=== PATIENT | male | born 1965 | race Caucasian/White ===

== ENCOUNTER 2017-08-12 18:18 | Inpatient (IN) | payer OTHER ==
[2017-08-12 19:05] LABS: #Eosinphils 0.2 thou/uL (0.0-0.7); #Lymphocytes 1.9 thou/uL (1.20-3.40); #Monocytes 0.8 thou/uL (0.11-0.59); %Basophils 0.3 % (0.0-1.0); %Eosinophils 1.5 % (0.0-10.0); %Lymphocytes 17.2 % (21.0-51.0); %Monocytes 7.6 % (0.0-10.0); Hematocrit 41.4 % (42.0-52.0); Mean Platelet Volume 7.3 fL (7.4-10.4); Red Blood Cell (RBC) Count 4.35 mill/uL (4.70-6.10); White Blood Cell (WBC) Count 10.9 thou/uL (4.8-10.8)
[2017-08-12 19:28] LABS: Lactic Acid - Sepsis 2.1 mmol/L (0.5-2.2)
[2017-08-12 19:35] LABS: ALT (SGPT) 23 U/L (8-55); AST (SGOT) 15 U/L (5-34); Alkaline Phosphatase 96 U/L (40-150); Anion Gap 13 mmol/L (10-20); BUN (Urea Nitrogen) 24 mg/dL (8.4-25.7); Bilirubin, Total 0.5 mg/dL (0.2-1.2); CK (CPK) 61 U/L (30-200); Calc. Creatinine Clearance 0 mL/min (70-130); Calcium 9.1 mg/dL (7.8-10.44); Carbon Dioxide 27 mmol/L (22-29); Chloride 105 mmol/L (98-107); Estimated GFR-MDRD 87; Globulin 3.4 g/dL (2.4-3.5); Lipase 40 U/L (8-78)
[2017-08-12 19:37] LABS: Troponin I Less than 0.010 ng/mL (< 0.028)
--- NOTE | 2017-08-12 19:43 | RAD ---
PORTABLE AP CHEST X-RAY 08/12/17 HISTORY: Fever. FINDINGS: The cardiac silhouette and pulmonary vasculature are within normal limits. The lungs are clear. Osse ous structures are intact. Vascular calcifications seen in the thoracic aorta. Mild degenerative briana nges are noted in the spine. IMPRESSION: No acute cardiopulmonary process. POS: H
[2017-08-12] MEDS ORDERED: Piperacillin/Tazobactam 3.375 GM VIAL ONE (21:00)
[2017-08-12] MEDS ORDERED: Sodium Chloride 0.9% 100 ML ONE (21:00)
[2017-08-12] MEDS ORDERED: Ondansetron HCl/PF 4 MG/2 ML Vial IVP PRN ×2 (22:19→23:47)
[2017-08-12] MEDS ORDERED: Ondansetron ODT 4 MG TAB SL PRN (22:19)
[2017-08-12] MEDS ORDERED: Sodium Chloride 0.9% 1,000 ML IV SCH (22:19)
[2017-08-12] MEDS ORDERED: Vancomycin HCl 1 GM in Premix Bag 1 BAG IVPB SCH (23:00)
[2017-08-12] MEDS ORDERED: cloNIDine HCl 0.1 MG TAB PO PRN (23:47)
[2017-08-12] MEDS ORDERED: Ondansetron ODT 4 MG TAB PO PRN (23:47)
[2017-08-12] MEDS ORDERED: Acetaminophen 500 MG TAB PO PRN (23:47)
[2017-08-12 23:52] VITALS: BMI 24.9
[2017-08-13] MEDS: Sodium Chloride 0.9% 1,000 ML IV SCH ×2 (00:20→05:17)
--- NOTE | 2017-08-13 00:51 | HP ---
DATE OF ADMISSION: 08/12/2017 PRIMARY CARE PROVIDER: Stefania Argueta MD CHIEF COMPLAINT: Fever. HISTORY OF PRESENT ILLNESS: This is a 52-year-old male who is a current resident at a [facility] in [place], [place] with a significant history of hydrocephalus with a ssociated dementia and behavioral disturbance, who the halfway personnel noted a fever up to 10 0.2 degrees Fahrenheit. The patient also complained of left leg pain with questionable functional d ecline beyond baseline. The patient was evaluated by the nurse practitioner at [facility] and recommended for transfer to [facility]. The patient was treated with Tylenol 500 mg x1 dose with essentially normal vital signs except for the temperature o f 100.2 degrees Fahrenheit. The patient currently denies any specific symptoms such as shortness of breath, cough, chest pain, abdominal discomfort, dysuria, hematuria, hematemesis, or diarrhea. [place]an[place]ita [place] states he feels at his baseline and is not sure why he was in the hospital. The rest of the hi story is obtained after review of the electronic medical record from [facility] in addition to the emergency room records. In the emergency room, the patient underwent genera l evaluation including chest imaging showing no acute infiltrate. The patient did receive IV vancom ycin and Zosyn as well as 2 liters of normal saline. The patient was transferred to the medical michael or after concern for SIRS. PAST MEDICAL HISTORY: 1. Hydrocephalus. 2. Dementia with behavioral disturbance, likely secondary to #1. 3. Mood disorder. 4. Seborrheic dermatitis. 5. Generalized muscle weakness. 6. Ataxic gait. PAST SURGICAL HISTORY: Reviewed and negative. CURRENT MEDICATIONS: 1. Aricept 10 mg one tablet p.o. daily. 2. Zofran 4 mg p.o. every 4 to 6 hours p.r.n. 3. Tylenol No. 3 of 300 mg p.o. every 6 hours p.r.n. 4. Seroquel 50 mg p.o. daily. 5. Coreg 6.25 mg p.o. b.i.d. 6. Lisinopril 20 mg one tablet p.o. daily. 7. Folic acid 1 mg p.o. daily. ALLERGIES: No known drug allergies. FAMILY HISTORY: No inheritable diseases per patient report. SOCIAL HISTORY: Patient resides at a [facility]. No current alcohol, toba account supervisor, or illicit drug use. Requires assistance with all activities of daily living. Mobilizes with a wheelchair. REVIEW OF SYSTEMS: The following complete review of systems was negative, unless otherwise mentione d in the HPI or below: Constitutional: Weight loss or gain, ability to conduct usual activities. Skin: Rash, itching. Eyes: Double vision, pain. ENT/Mouth: Nose bleeding, neck stiffness, pain, tenderness. Cardiovascular: Palpitations, dyspnea on exertion, orthopnea. Respiratory: Shortness of breath, wheezing, cough, hemoptysis, fever or night sweats. Gastrointestinal: Poor appetite, abdominal pain, heartburn, nausea, vomiting, constipation, or diar crispin. Genitourinary: Urgency, frequency, dysuria, nocturia. Musculoskeletal: Pain, swelling. Neurologic/Psychiatric: Anxiety, depression. Allergy/Immunologic: Skin rash, bleeding tendency. PHYSICAL EXAMINATION: VITAL SIGNS: On admission, blood pressure is 164/117, pulse 90, respiratory rate 18, temperature 98 .5 degrees Fahrenheit, O2 saturation 99% on room air. GENERAL APPEARANCE: This is a 52-year-old male, alert and responsive, in no acute distres s. HEENT EXAM: Pupils are equal, round, and reactive to light and accommodation. Extraocular muscles are intact. No scleral icterus, no conjunctival injection. Nares patent. OP is clear. Teeth in f air repair. NECK: Supple, no cervical adenopathy, no thyromegaly, no carotid bruits, no JVD appreciated. Cervi maverick spine with full active and passive range of motion. CHEST: Lungs are clear to auscultation bilaterally. CARDIOVASCULAR EXAM: S1 and S2, without noted murmur. ABDOMEN: Rounded, soft, nontender, and nondistended. Bowel sounds are positive in all four quadran ts. There is no hepatosplenomegaly, no abdominal bruits, no rebound or guarding appreciated. EXTREMITIES: Warm and dry with fair turgor. No clubbing, cyanosis, or asymmetric edema appreciated . Pulses are palpable distally at the dorsalis pedis, posterior tibial, and popliteal arteries bila terally. Capillary refill is less than 2 seconds. NEUROLOGIC EXAM: Cranial nerves II through XII are grossly intact. The patient not observed ambula tory during this exam. Alert and oriented x2. PERTINENT LABORATORY DATA AND X-RAY FINDINGS: Basic metabolic profile within normal limits. Lactic acid level negative x2. LFTs negative. BNP 19.4, albumin 3.6, lipase 40. CBC showed a white bloo d cell count 10.9, hemoglobin 14, hematocrit 41, MCV 95, platelet count 259 with normal differential . Portable chest x-ray dated on 08/12/2017, showed no acute cardiopulmonary process. ASSESSMENT AND PLAN: 1. Febrile episode. Etiology is unclear. We will continue to monitor clinically. Patient receive d IV vancomycin and Zosyn in the emergency room; however, no specific evidence to suggest focal infe ctious process. Check urinalysis with reflex microscopy. Hold further antibiotic therapy, pending clinical monitoring. 2. Hydrocephalus with early dementia. Continue symptomatic and supportive measures. Aricept 10 mg p.o. daily. 3. Hypertension, labile. Resume Coreg 6.25 mg p.o. b.i.d., lisinopril 20 mg p.o. daily. Continue serial blood pressure monitoring. 4. 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 We will obtain PT evaluation with general fall risk pre cautions. 5. Prophylaxis. Sequential compression devices while in bed. Pepcid 20 mg p.o. b.i.d. PT evaluat ion is pending. 6. Code status is DO NOT RESUSCITATE, confirmed with halfway records. Surrogate medical decis ion maker is Payton Carbone, patient's sister.
[2017-08-13] MEDS ORDERED: Piperacillin/Tazobactam 3.375 GM in Sodium Chloride 0.9% 100 ML IVPB SCH (03:00)
[2017-08-13 06:21] LABS: Anion Gap 9 mmol/L (10-20); BUN (Urea Nitrogen) 17 mg/dL (8.4-25.7); Calc. Creatinine Clearance 131 mL/min (70-130); Calcium 8.4 mg/dL (7.8-10.44); Carbon Dioxide 27 mmol/L (22-29); Chloride 107 mmol/L (98-107); Estimated GFR-MDRD Greater than 90
[2017-08-13 06:32] LABS: Band 2 % (5-11); Hematocrit 33.8 % (42.0-52.0); Mean Platelet Volume 7.4 fL (7.4-10.4); Neutrophil 60 % (42-75); Red Blood Cell (RBC) Count 3.57 mill/uL (4.70-6.10); White Blood Cell (WBC) Count 7.9 thou/uL (4.8-10.8)
[2017-08-13] MEDS: Famotidine 20 MG TAB PO SCH ×2 (08:35→20:04)
[2017-08-13] MEDS ORDERED: FLU VACC QS2017-18 36 mo. & older 0.5 ML SYRINGE IM ONE (09:00)
[2017-08-13] MEDS ORDERED: Acetaminophen 325 MG TAB PO PRN (12:27)
[2017-08-13] MEDS ORDERED: Mag-Al 1200 mg/1200 mg/30 ML UDCUP PO PRN (12:27)
[2017-08-13] MEDS ORDERED: Non-Formulary Item 1 EACH (Ondansetron Hcl [Zofran] 4 MG) PO PRN (12:27)
[2017-08-13 12:32] LABS: Bilirubin Negative (Negative); Blood, Urine Negative (Negative); Glucose, Urine (Dipstick) Negative (Negative); Ketone, Urine Negative (Negative); Nitrite Negative (Negative); Protein, Urine (Dipstick) Negative (Neg-Trace)
[2017-08-13] MEDS ORDERED: Loperamide HCl 2 MG CAP PO PRN (13:25)
--- NOTE | 2017-08-13 14:15 | PDOC.PN ---
- Subjective Encounter Start Date: 08/13/17 Encounter Start Time: 08:40 Pt seen for followup re: hypertension. Denies chest pain, shortness of breath, fevers or chills. - Objective Resuscitation Status: Resuscitation Status DNR:Do Not Resuscitate MAR Reviewed: Yes Vital Signs & Weight: Vital Signs (12 hours) Temp Pulse Resp BP Pulse Ox 08/13/17 11:35 98.2 F 80 16 165/119 H 92 L 08/13/17 08:00 97.7 F 75 16 97 08/13/17 07:47 97.7 F 75 16 159/107 H 97 08/13/17 04:00 98.1 F 91 16 160/98 H 93 L Weight Weight 184 lb I&O: 08/12/17 08/13/17 08/14/17 06:59 06:59 06:59 Intake Total 450 480 Balance 450 480 Result Diagrams: 08/13/17 05:41 08/13/17 05:41 Phys Exam - Physical Examination Constitutional: NAD HEENT: moist MMs, oral pharynx no lesions Neck: no JVD, supple, full ROM Respiratory: no wheezing, no rales, no rhonchi, clear to auscultation bilateral Cardiovascular: RRR, no rub Gastrointestinal: soft, non-tender, positive bowel sounds Musculoskeletal: pulses present Neurological: moves all 4 limbs Lymphatic: no nodes Psychiatric: normal affect Deviation from normal: Oriented to person and place, not to time Dx/Plan (1) Hypertension Code(s): I10 - ESSENTIAL (PRIMARY) HYPERTENSION Status: Acute (2) 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 Monitor vital signs and titrate antihypertensives as needed. Pt eval re: ataxic gait secondary to hydrocephalus. Pt has been afebrile, off of antibiotics. Await cultures. No evidence of UTI. Review of Systems - Review of Systems Constitutional: negative: Fever, Chills, Sweats, Weakness, Malaise Respiratory: negative: Cough, Dry, Shortness of Breath, Hemoptysis, SOB with Excertion, Pleuritic Pain, Sputum, Wheezing Cardiovascular: negative: Chest Pain, Palpitations, Orthopnea, Paroxysmal Noc. Dyspnea, Edema, Light Headedness Gastrointestinal: negative: Nausea, Vomiting, Abdominal Pain, Diarrhea, Constipation, Melena, Hematochezia Genitourinary: negative: Dysuria, Frequency, Incontinence, Hematuria, Retention - Medications/Allergies Allergies/Adverse Reactions: Allergies Allergy/AdvReac Type Severity Reaction Status Date / Time No Known Allergies Allergy Verified 08/13/17 01:17 Medications: Current Medications Acetaminophen (Tylenol) 1,000 mg PO Q6H PRN PRN Reason: Headache/Fever or Mild Pain Acetaminophen (Tylenol) 650 mg PO Q4H PRN PRN Reason: Mild Pain (1-3) Acetaminophen/Codeine Phosphate (Tylenol #3) 1 tab PO Q6H PRN PRN Reason: Moderate Pain (4-6) Al Hydroxide/Mg Hydroxide (Maalox) 30 ml PO Q4H PRN PRN Reason: Heartburn or Indigestion Carvedilol (Coreg) 6.25 mg PO BID [facility] Clonidine HCl (Catapres) 0.1 mg PO Q4H PRN PRN Reason: Systolic BP > 180 Donepezil HCl (Aricept) 10 mg PO HS [facility] Famotidine (Pepcid) 20 mg PO BID [facility] Last Admin: 08/13/17 08:35 Dose: 20 mg Hydralazine HCl (Apresoline) 10 mg SLOW IVP Q4H PRN PRN Reason: Systolic BP > 180 Sodium Chloride (Normal Saline 0.9%) 1,000 mls @ 75 mls/hr IV .[id number] [facility] Last Admin: 08/13/17 05:17 Dose: 1,000 mls Lisinopril (Zestril) 20 mg PO DAILY [facility] Loperamide HCl (Imodium) 2 mg PO PRN PRN PRN Reason: Diarrhea/Loose Stools Multivitamins/Zinc (Stress 600 With Zinc) 1 tab PO DAILY [facility] Ondansetron HCl (Zofran Odt) 4 mg PO Q6H PRN PRN Reason: Nausea/Vomiting Ondansetron HCl (Zofran) 4 mg IVP Q6H PRN PRN Reason: Nausea/Vomiting Quetiapine Fumarate (Seroquel) 50 mg PO DAILY [facility]
--- NOTE | 2017-08-13 16:50 | CON ---
DATE OF CONSULTATION: 08/13/2017 LOCATION: [place] [id number] CONSULTING PHYSICIAN: Dr. Guerra REASON FOR CONSULTATION: Hydrocephalus. HISTORY OF PRESENT ILLNESS: The history is obtained from the chart review and from the patient's wi fe and his daughter. The patient's was present at bedside and the patient's daughter was able to give some information on the phone. The patient is a 52-year-old male who is a current resident at [facility] who has a past medical history of hydrocephalus, and dementia with behavioral disturbance due to hydrocephalus, mood disorder, dermatitis, ataxic gait who presented to the hospital with fever. According to the documentation and the daughter the patient was at the prison yesterday and wh en the prison personnel went to check on him, they transferred him from his bed to the chair t o take him to the dining area to assist him in feeding. They noticed that he was crouched over and slumped over and unable to hold his torso up. When they brought him back they noticed that he had s ome shaking and tremors of his legs. When they took the temperature it was 100.2. The patient was subsequently transferred over here for further evaluation. Per documentation the patient denied shortness of breath, cough, chest pain, abdominal discomfort, d ysuria, hematuria, hematemesis or diarrhea. The patient received IV vancomycin and Zosyn as well as normal saline and then was subsequently transferred to the medical floor for concern for systemic i nflammatory response syndrome. The patient's hydrocephalus has been chronic in nature. He has longstanding history of hydrocephalu s and dementia and confusion. He has been evaluated by Neurosurgery in the past. He has had lumbar puncture done twice with no improvement in his symptoms, so no shunt was recommended by Neurosurger y in the past. He has had extensive workup in regards to his hydrocephalus. According to the ER documentation his temperature was 98.3-98.5. His temperature has been normal si nce admission. The patient does not provide much history, but he denies any symptoms currently. PAST MEDICAL HISTORY: As mentioned in the HPI. PAST SURGICAL HISTORY: Negative. HOME MEDICATIONS: Please review the chart. He is on Aricept, Seroquel, along with the blood pressu re medications. ALLERGIES: No known drug allergies. FAMILY HISTORY: No inheritable disease. SOCIAL HISTORY: He lives at the prison facility. No alcohol, tobacco or illicit drug use. REVIEW OF SYSTEMS: As mentioned in the HPI, otherwise negative. PHYSICAL EXAMINATION: VITAL SIGNS: Temperature 98.2, pulse rate 80, respiratory rate 16, O2 sats 92-97% on room air, bloo d pressure 165/119. GENERAL: Well-developed, well-nourished male in no apparent distress. HEENT: Normocephalic, atraumatic. Normal sclerae. NECK: Supple. RESPIRATORY: Clear to auscultation bilaterally. CARDIOVASCULAR: Regular rate and rhythm. NEUROLOGIC: The patient's neurological exam is limited due to his inability to follow commands at t imes. He is awake. He is alert. He is not drowsy, does not appear to be lethargic or obtunded. Braulio nowak is able to tell me his name, his date of . He is able to state that he is in [place], [place]. Speech and language intact. He was able to name object and was able to follow commands appropriatel y. Cranial nerves: Pupils were reactive to light bilaterally. Extraocular movements intact. Visu al foster were difficult to assess. No facial droop noted. Motor; normal tone and bulk. The patie nt was able to raise his upper extremities against gravity without any focal weakness. Lower extrem ities; he was barely able to lift them up, unsure what his baseline is. Sensation intact to fine to uch throughout. Coordination is intact to [id number] testing in upper extremities. Gait an d Romberg not tested. LABORATORY DATA: The patient had elevated white cell count 10.9 on admission, normal today. Chemis try; normal electrolytes, potassium 3.3. LFTs normal. Kidney function normal. Urinalysis negative . IMAGING: No imaging from neurological standpoint. IMPRESSION: 1. Hydrocephalus. In regards to hydrocephalus, the patient has had extensive workup done in the [facility] including lumbar puncture twice. There was no improvement in his symptoms. The patient was eval uated by Neurosurgery and they did not recommend any shunt placement. His hydrocephalus, dementia a nd confusion are longstanding. He has a longstanding history of dementia, confusion and hydrocephal us and as mentioned before, he has had extensive workup done for that. No other workup needed at is time. 2. Fever. Continue medical management per primary team. Right now on exam the patient is awake, a lert and oriented and following commands. He does not appear to be confused. He does not appear to be lethargic or obtunded. If patient continues to run fever and his altered mental status and ther e is no other source of infection then patient may benefit with lumbar puncture to rule out meningit is. Continue antibiotics and medical management per primary team. No other recommendations from a neurological standpoint. We will sign off. Please call us with que stions.
[2017-08-13] MEDS: Vancomycin HCl 1.25 GM in Sodium Chloride 0.9% 250 ML 250 ML IVPB SCH (17:07)
[2017-08-13] MEDS: Acetaminophen/Codeine 30-300mg Tablet PO PRN (19:14)
[2017-08-13] MEDS: Carvedilol 6.25 MG TAB PO SCH (20:03)
[2017-08-13] MEDS: Donepezil HCl 10 MG TAB PO SCH (20:03)
[2017-08-14] MEDS: Sodium Chloride 0.9% 1,000 ML IV SCH ×2 (00:20→16:34)
[2017-08-14] MEDS: Vancomycin HCl 1.25 GM in Sodium Chloride 0.9% 250 ML 250 ML IVPB SCH ×2 (02:15→10:57)
[2017-08-14] MEDS: Lisinopril 20 MG TAB PO SCH (08:52)
[2017-08-14] MEDS: Carvedilol 6.25 MG TAB PO SCH ×2 (08:53→21:18)
[2017-08-14] MEDS: Famotidine 20 MG TAB PO SCH ×2 (08:53→21:17)
[2017-08-14] MEDS: Stress 600 With Zinc 1 TAB PO SCH (08:54)
--- NOTE | 2017-08-14 14:35 | PDOC.PN ---
- Subjective Encounter Start Date: 08/14/17 Encounter Start Time: 13:00 Subjective: no sob, is awake and oriented well -: eating well - Objective Resuscitation Status: Resuscitation Status DNR:Do Not Resuscitate MAR Reviewed: Yes Vital Signs & Weight: Vital Signs (12 hours) Temp Pulse Resp BP BP Pulse Ox 08/14/17 08:53 134/88 08/14/17 08:52 134/88 08/14/17 08:00 98.1 F 83 18 97 08/14/17 07:39 98.1 F 83 18 148/94 H 97 Weight Admit Weight 184 lb Weight 184 lb I&O: 08/13/17 08/14/17 08/15/17 06:59 06:59 06:59 Intake Total 450 3726 240 Balance 450 3726 240 Result Diagrams: 08/13/17 05:41 08/13/17 05:41 Phys Exam - Physical Examination HEENT: PERRLA, moist MMs Neck: no JVD, supple Respiratory: no wheezing, no rales Cardiovascular: RRR, no significant murmur Gastrointestinal: soft, non-tender, positive bowel sounds Musculoskeletal: no edema, pulses present Neurological: non-focal, moves all 4 limbs Dx/Plan (1) Fever Code(s): R50.9 - FEVER, UNSPECIFIED Status: Resolved (2) Dementia Code(s): F03.90 - UNSPECIFIED DEMENTIA WITHOUT BEHAVIORAL DISTURBANCE Status: Chronic Qualifiers: Dementia type: unspecified type (3) Hypertension Code(s): I10 - ESSENTIAL (PRIMARY) HYPERTENSION Status: Chronic Qualifiers: Hypertension type: essential hypertension Qualified Code(s): I10 - Essential (primary) hypertension (4) Ataxia Code(s): R27.0 - ATAXIA, UNSPECIFIED Status: Chronic (5) Hydrocephalus Code(s): G91.9 - HYDROCEPHALUS, UNSPECIFIED Status: Chronic - Plan 1/2 coag -ve staph, likely contaminant -: no further fever here -: is on vanc -: dc plan in am if stable to snf -: PT to mobilize pt as tolerated, ?ataxic gait * . Review of Systems - Medications/Allergies Allergies/Adverse Reactions: Allergies Allergy/AdvReac Type Severity Reaction Status Date / Time No Known Allergies Allergy Verified 08/13/17 01:17 Medications: Current Medications Acetaminophen (Tylenol) 1,000 mg PO Q6H PRN PRN Reason: Headache/Fever or Mild Pain Acetaminophen (Tylenol) 650 mg PO Q4H PRN PRN Reason: Mild Pain (1-3) Last Admin: 08/13/17 17:08 Dose: 650 mg Acetaminophen/Codeine Phosphate (Tylenol #3) 1 tab PO Q6H PRN PRN Reason: Moderate Pain (4-6) Last Admin: 08/13/17 19:14 Dose: 1 tab Al Hydroxide/Mg Hydroxide (Maalox) 30 ml PO Q4H PRN PRN Reason: Heartburn or Indigestion Carvedilol (Coreg) 6.25 mg PO BID [facility] Last Admin: 08/14/17 08:53 Dose: 6.25 mg Clonidine HCl (Catapres) 0.1 mg PO Q4H PRN PRN Reason: Systolic BP > 180 Donepezil HCl (Aricept) 10 mg PO HS [facility] Last Admin: 08/13/17 20:03 Dose: 10 mg Famotidine (Pepcid) 20 mg PO BID [facility] Last Admin: 08/14/17 08:53 Dose: 20 mg Hydralazine HCl (Apresoline) 10 mg SLOW IVP Q4H PRN PRN Reason: Systolic BP > 180 Sodium Chloride (Normal Saline 0.9%) 1,000 mls @ 75 mls/hr IV .[id number] [facility] Last Admin: 08/14/17 00:20 Dose: 1,000 mls Vancomycin HCl 1.25 gm/ Sodium (Chloride) 250 mls @ 166.667 mls/hr IVPB 0200, 1000,1800 [facility] Last Admin: 08/14/17 10:57 Dose: 250 mls Lisinopril (Zestril) 20 mg PO DAILY [facility] Last Admin: 08/14/17 08:52 Dose: 20 mg Loperamide HCl (Imodium) 2 mg PO PRN PRN PRN Reason: Diarrhea/Loose Stools Multivitamins/Zinc (Stress 600 With Zinc) 1 tab PO DAILY [facility] Last Admin: 08/14/17 08:54 Dose: 1 tab Ondansetron HCl (Zofran Odt) 4 mg PO Q6H PRN PRN Reason: Nausea/Vomiting Ondansetron HCl (Zofran) 4 mg IVP Q6H PRN PRN Reason: Nausea/Vomiting Quetiapine Fumarate (Seroquel) 50 mg PO DAILY [facility] Last Admin: 08/14/17 08:52 Dose: 50 mg
[2017-08-14 17:51] LABS: Vancomycin, Trough 27.9 ug/mL
[2017-08-14] MEDS: Donepezil HCl 10 MG TAB PO SCH (21:18)
[2017-08-15] MEDS: Vancomycin HCl 1.25 GM in Sodium Chloride 0.9% 250 ML 250 ML IVPB SCH ×3 (00:22→17:56)
[2017-08-15 03:57] LABS: Vancomycin, Random 15.2 ug/mL (See Comment)
[2017-08-15] MEDS: Sodium Chloride 0.9% 1,000 ML IV SCH ×2 (05:09→17:57)
[2017-08-15] MEDS: Carvedilol 6.25 MG TAB PO SCH ×2 (08:58→20:34)
[2017-08-15] MEDS: Stress 600 With Zinc 1 TAB PO SCH (08:58)
[2017-08-15] MEDS: Lisinopril 20 MG TAB PO SCH (08:58)
[2017-08-15] MEDS: Famotidine 20 MG TAB PO SCH ×2 (08:59→20:34)
--- NOTE | 2017-08-15 12:16 | PDOC.PN ---
- Subjective Encounter Start Date: 08/15/17 Encounter Start Time: 11:25 Subjective: feels better, eating well, no fever -: amb in room for short distances - Objective Resuscitation Status: Resuscitation Status DNR:Do Not Resuscitate MAR Reviewed: Yes Vital Signs & Weight: Vital Signs (12 hours) Temp Pulse Resp BP BP Pulse Ox 08/15/17 11:28 163/103 H 08/15/17 08:58 171/105 H 08/15/17 08:00 98.1 F 82 16 95 08/15/17 07:39 98.1 F 82 16 171/105 H 95 Weight Admit Weight 184 lb Weight 184 lb I&O: 08/14/17 08/15/17 08/16/17 06:59 06:59 06:59 Intake Total 3726 2854 240 Balance 3726 2856 240 Result Diagrams: 08/13/17 05:41 08/13/17 05:41 Phys Exam - Physical Examination HEENT: PERRLA, moist MMs Neck: no JVD, supple Respiratory: no wheezing, no rales Cardiovascular: RRR, no significant murmur Gastrointestinal: soft, non-tender, positive bowel sounds Musculoskeletal: no edema, pulses present Neurological: non-focal, moves all 4 limbs Psychiatric: A&O x 3 Dx/Plan (1) Fever Code(s): R50.9 - FEVER, UNSPECIFIED Status: Resolved (2) Dementia Code(s): F03.90 - UNSPECIFIED DEMENTIA WITHOUT BEHAVIORAL DISTURBANCE Status: Chronic Qualifiers: Dementia type: unspecified type (3) Hypertension Code(s): I10 - ESSENTIAL (PRIMARY) HYPERTENSION Status: Chronic Qualifiers: Hypertension type: essential hypertension Qualified Code(s): I10 - Essential (primary) hypertension (4) Ataxia Code(s): R27.0 - ATAXIA, UNSPECIFIED Status: Chronic (5) Hydrocephalus Code(s): G91.9 - HYDROCEPHALUS, UNSPECIFIED Status: Chronic - Plan 1/2 coag neg staph is likely contaminant -: dc pt to snf in am -: is on vanc for now -: hemostable -: chronic hydrocephalus, no intervention for now * . Review of Systems - Medications/Allergies Allergies/Adverse Reactions: Allergies Allergy/AdvReac Type Severity Reaction Status Date / Time No Known Allergies Allergy Verified 08/13/17 01:17 Medications: Current Medications Acetaminophen (Tylenol) 1,000 mg PO Q6H PRN PRN Reason: Headache/Fever or Mild Pain Acetaminophen (Tylenol) 650 mg PO Q4H PRN PRN Reason: Mild Pain (1-3) Last Admin: 08/13/17 17:08 Dose: 650 mg Acetaminophen/Codeine Phosphate (Tylenol #3) 1 tab PO Q6H PRN PRN Reason: Moderate Pain (4-6) Last Admin: 08/13/17 19:14 Dose: 1 tab Al Hydroxide/Mg Hydroxide (Maalox) 30 ml PO Q4H PRN PRN Reason: Heartburn or Indigestion Carvedilol (Coreg) 6.25 mg PO BID [facility] Last Admin: 08/15/17 08:58 Dose: 6.25 mg Clonidine HCl (Catapres) 0.1 mg PO Q4H PRN PRN Reason: Systolic BP > 180 Donepezil HCl (Aricept) 10 mg PO HS [facility] Last Admin: 08/14/17 21:18 Dose: 10 mg Famotidine (Pepcid) 20 mg PO BID [facility] Last Admin: 08/15/17 08:59 Dose: 20 mg Hydralazine HCl (Apresoline) 10 mg SLOW IVP Q4H PRN PRN Reason: Systolic BP > 180 Sodium Chloride (Normal Saline 0.9%) 1,000 mls @ 75 mls/hr IV .[id number] [facility] Last Admin: 08/15/17 05:09 Dose: Not Given Vancomycin HCl 1.25 gm/ Sodium (Chloride) 250 mls @ 166.667 mls/hr IVPB 0500, 1700 [facility] Last Admin: 08/15/17 05:10 Dose: 250 mls Lisinopril (Zestril) 20 mg PO DAILY [facility] Last Admin: 08/15/17 08:58 Dose: 20 mg Loperamide HCl (Imodium) 2 mg PO PRN PRN PRN Reason: Diarrhea/Loose Stools Multivitamins/Zinc (Stress 600 With Zinc) 1 tab PO DAILY [facility] Last Admin: 08/15/17 08:58 Dose: 1 tab Ondansetron HCl (Zofran Odt) 4 mg PO Q6H PRN PRN Reason: Nausea/Vomiting Ondansetron HCl (Zofran) 4 mg IVP Q6H PRN PRN Reason: Nausea/Vomiting Quetiapine Fumarate (Seroquel) 50 mg PO DAILY [facility] Last Admin: 08/15/17 08:58 Dose: 50 mg
[2017-08-15] MEDS: Acetaminophen/Codeine 30-300mg Tablet PO PRN (13:24)
[2017-08-15] MEDS: Donepezil HCl 10 MG TAB PO SCH (20:34)
[2017-08-16] MEDS: Vancomycin HCl 1.25 GM in Sodium Chloride 0.9% 250 ML 250 ML IVPB SCH (04:51)
[2017-08-16] MEDS: Carvedilol 6.25 MG TAB PO SCH (08:23)
[2017-08-16] MEDS: Famotidine 20 MG TAB PO SCH (08:23)
[2017-08-16] MEDS: Lisinopril 20 MG TAB PO SCH (08:23)
[2017-08-16] MEDS: Stress 600 With Zinc 1 TAB PO SCH (08:23)
[2017-08-16 09:08] VITALS: TEMP 98.4
[2017-08-16 11:38] VITALS: BP 131/51
--- NOTE | 2017-08-16 13:51 | DIS ---
PRIMARY CARE PHYSICIAN: Dr. Argueta DATE OF ADMISION: 08/12/2017 DATE OF DISCHARGE: 08/16/2017 DISCHARGE DISPOSITION: [facility]. PRIMARY DISCHARGE DIAGNOSIS: Acute febrile illness of unclear etiology, resolved. SECONDARY DISCHARGE DIAGNOSES: Hydrocephalus with early dementia, hypertension, ataxia and physical deconditioning, mood disorder, seborrheic dermatitis, generalized muscle weakness. PRIMARY PROCEDURE/OPERATION: None. RADIOLOGICAL INVESTIGATION: Chest x-ray showed no acute cardiopulmonary process. LABORATORY: CBC: WBC 7.9, hemoglobin 11.7, platelets 201. Sodium 140, potassium 3.3, BUN 17, crea tinine 0.76, calcium 8.4. LFTs normal. Cardiac enzymes negative. BNP 19.4, lipase 40. Urinalysis normal. Blood culture 1 of 2 was positive for coagulase negative Staphylococcus aureus, which appe ars attributed to be due to contaminant. DISCHARGE MEDICATIONS: Augmentin 575 mg twice daily for 5 more days to finish complete course of th erapy, Tylenol 650 mg p.o. q.4 hourly p.r.n., Tylenol #3 one tablet q.6 hourly p.r.n., Maalox 20 mL p.o. p.r.n., Coreg 6.25 mg p.o. b.i.d., Aricept 10 mg p.o. at bedtime, lisinopril 20 mg p.o. daily, Imodium as directed, Zofran 4 mg q.6 hours p.r.n., Seroquel 50 mg p.o. daily. Vitamin B complex 1 c apsule p.o. daily. CONTRAINDICATIONS: None. CODE STATUS: DNR. This was discussed during this admission. INPATIENT CONSULTANTS: Dr. Sarah Zayas was consulted while in hospital and she recommended that the patient's hydrocephalus is chronic and does not require any further investigation. TEST RESULTS PENDING ON DISCHARGE: None. ALLERGIES: No known drug allergy. DISCHARGE PLAN: Post hospital, the patient will follow up with primary care physician at [facility]. HOSPITAL COURSE: A 52-year-old male who lives at [facility]. He has underlying dementi a with behavioral problems. The patient was having fever at long term and that is why the patien t was sent to hospital for evaluation. At the long term his fever was 100.2 degrees Fahrenheit. His chest x-ray was normal. His routine blood test was unremarkable. The patient had blood cultur e done which was also negative. He was given IV fluids, vancomycin and Zosyn in the emergency room and subsequently he was admitted to medical floor. We continued with antibiotic therapy. His blood culture was positive for coagulase negative Staph aureus 1 out of 2 and that was attributed to be d ue to contaminant. His urinalysis was normal. He remained afebrile while in hospital. On discharge, we prescribed Aug mentin for 5 days to finish complete course of therapy. He was given vancomycin while in hospital a fter positive blood culture for coagulase negative Staph aureus. The patient is seen and examined at bedside today. All review of systems reviewed and negative. Pl an of care discussed with the patient's medical power of furnace setter at bedside and patient's family me mber at bedside in detail. VITAL SIGNS: Currently, temperature 98.4, pulse 81, blood pressure 131/51, saturation 93% on room a ir, weight 184 pounds. GENERAL: The patient is currently alert, awake, follows simple commands, no obvious acute distress. HEAD: Normocephalic, atraumatic. EYES: Pupils round, reactive to light. Extraocular muscle intact. ENT: Oropharynx within normal limits. Moist mucous membranes. No oral lesions. No pharyngeal kaitlin thema, no exudate. NECK: Supple, range of motion is normal. No meningeal signs of irritation. LUNGS: Clear to auscultation without any rhonchi or rales. CARDIAC: S1, S2 regular without any murmur. ABDOMEN: Soft and benign. EXTREMITIES: No edema. NEUROLOGIC: Nonfocal examination. Overall, the patient is medically stable for discharge. Paperwork for discharge done. Discharge me dication reconciliation done. Total time spent on discharge day 31 minutes.
== END 2017-08-16 14:04 | DRG 864 ==
LOC: ERS 18:18 → T4-B 22:02
PROVIDERS: ADMIT Internal Medicine; ATTEND Internal Medicine
DX: R50.9 Fever, unspecified (principal); G91.9 Hydrocephalus, unspecified; F02.81 Dementia in other diseases classified elsewhere, unspecified severity, with behavioral disturbance; I10 Essential (primary) hypertension; L21.9 Seborrheic dermatitis, unspecified; F39 Unspecified mood [affective] disorder; R27.0 Ataxia, unspecified; Z66 Do not resuscitate
CPT/HCPCS: 36415; 71010; 80048; 80053; 80202; 81003; 82550; 82553; 83605; 83690; 83880; 84484; 85007; 85025; 85027; 87040; 87149; 93005; 96361; 96365; G8978-GP-CK; G8979-GP-CL; G8987-GO-CL; G8988-GO-CJ; J0360; J2543; J3370; J7050